=== PATIENT | female | born 1955 | race Caucasian/White ===

== ENCOUNTER 2018-10-11 06:24 | Day surgery (SDC) | payer MEDICARE, OTHER ==
[~2018-10-11 06:24] MED LIST: Buffered Lidocaine 1% SYRIN* 1 ML/SYRINGE INTRADERM ONE; Lactated Ringers 1000 ML Bag* 1,000 ML IV SCH
[2018-10-11] MEDS ORDERED: Bupivacaine 0.25% SDV* 30 ML ONE (07:10)
[2018-10-11] MEDS ORDERED: Propofol* 10 MG/ML 20 ML BTL ONE (07:18)
[2018-10-11] MEDS ORDERED: Lidocaine 2% PF * 5 ML VIAL ONE (07:18)
[2018-10-11] MEDS ORDERED: fentaNYL* 50 MCG/ML 2 ML VIAL (100 MCG VIAL) ONE (07:19)
[2018-10-11] MEDS ORDERED: Naloxone* 0.4 MG/ML 1 ML VIAL IV PRN (07:26)
[2018-10-11] MEDS ORDERED: Ondansetron INJ* 2 MG/ML VIAL IV PRN (07:26)
[2018-10-11 08:59] VITALS: BP 138/56
--- NOTE | 2018-10-11 09:47 | OP ---
DATE OF OPERATION: 10/11/18 [facility] DATE OF : 51 SURGEON: Abdon John MD SPINNER CONTINUOUS: SALLY Garcia ANESTHESIOLOGIST: Dr. Joyce ANESTHESIA: General. PRE-OP DIAGNOSIS: Right carpal tunnel syndrome. POST-OP DIAGNOSIS: Right carpal tunnel syndrome. OPERATIVE PROCEDURE: Right endoscopic carpal tunnel release. INDICATIONS: Anahy has right carpal tunnel syndrome. We talked about risks and benefits. She wanted to proceed with the release. ESTIMATED BLOOD LOSS: 2 mL. COMPLICATIONS: None. FINDINGS: See above and below. DESCRIPTION OF PROCEDURE: Anahy was seen in the preoperative holding area. The correct side, site, and procedure were identified. We came back to the operating room. The arm was prepped and draped in the usual fashion. A time- out was performed. The arm was exsanguinated with the Esmarch and the tourniquet was inflated to 250 mmHg. I went ahead and made a 1 cm incision just proximal to the wrist flexion crease. Dissection was carried down through the distal antebrachial fascia. This was split bluntly with the tenotomy scissors transversely. A 2-prong skin hook was placed to retract that up and out of the way. The dilators were used followed by a Q-tip to dry out the carpal tunnel. I then placed the MicroAire endoscopic carpal tunnel system down into the carpal tunnel. When I had excellent visualization and with the median nerve well protected, I went ahead and elevated the blade and I pulled back proximally to release the entirety of the transverse carpal ligament just off the radial aspect of the hook of the hamate. Once the edges of the ligament were seen to be well , I went ahead and released some distal antebrachial fascia proximally. At this point, everything was looking good. The wound was irrigated, was closed with a single 4-0 nylon suture. Soft dressing was applied and she was taken to the recovery room in stable condition. [id number]/CPS #: [id number] [facility]ITALStacy
== END 2018-10-11 09:10 | disposition home or self-care (01) ==
LOC: OREAST 06:24
PROVIDERS: ATTEND Orthopaedic Surgery Hand Surgery
DX: G56.01 Carpal tunnel syndrome, right upper limb (principal); E11.9 Type 2 diabetes mellitus without complications; Z79.4 Long term (current) use of insulin; I10 Essential (primary) hypertension; E78.5 Hyperlipidemia, unspecified; Z87.891 Personal history of nicotine dependence; K21.9 Gastro-esophageal reflux disease without esophagitis; M19.90 Unspecified osteoarthritis, unspecified site
CPT/HCPCS: J2704; J3010; J3490